=== PATIENT | female | born 1980 | race African-American/Black ===

== ENCOUNTER 2021-04-13 06:48 | Emergency (ER) | payer BC ==
[~2021-04-13] VITALS: Ht 160 cm; Wt 72.6 kg
[~2021-04-13 06:48] MED LIST: GLUCOPHAGE500 MG PO; PHENERGAN25 M1 RC; ZOFRAN ODT4 M1 PO
[2021-04-13 06:58] VITALS: BP 154/74
[2021-04-13] MEDS ORDERED: CORTISPORIN OTI10 M2 OTIC (07:14)
[2021-04-13] MEDS ORDERED: MECLIZINE HCL25 M1 PO (07:14)
== END 2021-04-13 07:15 | disposition home or self-care (01) ==
LOC: ER 06:48
DX: I69.898 Other sequelae of other cerebrovascular disease (principal); R42 Dizziness and giddiness; H92.02 Otalgia, left ear; E11.9 Type 2 diabetes mellitus without complications; Z79.899 Other long term (current) drug therapy